=== PATIENT | female | born 1945 | race Caucasian/White ===

== ENCOUNTER → 2018-03-05 | Outpatient (CLI) | payer MEDICARE, OTHER | LOC: GMAB 10:30 | PROVIDERS: ATTEND Family Medicine | DX: I10 Essential (primary) hypertension (principal) ==

== ENCOUNTER → 2018-06-18 | Outpatient (CLI) | payer MEDICARE, OTHER ==
--- NOTE | 2018-06-19 13:15 | MAM ---
EXAM DESCRIPTION: 3D Diagnostic, Bilateral: Digital Mammography CLINICAL HISTORY: 73 yearsFemaleABN MAMMO . Minimal pain around the left nipple. No personal history of breast cancer. No family history breast cancer. Childbirth. Postmenopausal. Has taken HRT 5 or more years ago. COMPARISON: 2-D digital screening bilateral study 06/09/2015. No prior reports available. TECHNIQUE: Bilateral CC LM MLO projection full-field images, 3-D tomosynthesis digital mammographic technique. CAD not utilized. FINDINGS: The breast parenchymal density pattern is: Almost entirely fatty. No skin thickening or nipple retraction axillary lymph node right breast. Lymph nodes in the axillary tail of the left breast. Bilateral solitary coarse calcifications and microcalcifications. No new focal, stellate mass or density, focal asymmetry , and no suspicious microcalcifications bilaterally. Stable mammograms compared to prior study, taking into account differences in mammographic technique IMPRESSION: BI-RADS CATEGORY: 2 - BENIGN FINDINGS. FOLLOW UP: Return to routine digital bilateral screening, one year interval from May 2018. Written communication explaining the IMPRESSION and follow-up, will be mailed to the patient and referring health care provider. According to the [employer], yearly mammograms are recommended starting at age 40 and continuing as long as a woman is in good health. Any breast change noted on a breast self-exam should be reported promptly to the patient's healthcare provider. Breast MRI is recommended for women with an approximately 20-25% or greater lifetime risk of breast cancer, including women with a strong family history of breast or ovarian cancer and women who have been treated for Hodgkin's disease. A negative mammographic report should not delay tissue diagnosis in patients with significant clinical history or physical findings. Extremely dense breast tissue limits the sensitivity of digital mammography. Electronically signed by: Nelson Vicente MD 06/19/2018 1:13 PM CDT
== END ==
LOC: MAMMO 11:00
PROVIDERS: ATTEND Obstetrics & Gynecology
DX: N64.4 Mastodynia (principal); R92.1 Mammographic calcification found on diagnostic imaging of breast
CPT/HCPCS: 77066; G0279

== ENCOUNTER → 2019-05-02 | Outpatient (CLI) | payer MEDICARE, OTHER ==
--- NOTE | 2019-05-02 13:23 | RAD ---
EXAM DESCRIPTION: XR Humerus,Right, 2 views CLINICAL HISTORY: 74 years Female, ARM SWELLING COMPARISON: July 16, 2016. FINDINGS: Screw and plate fixation of an old mid humeral shaft fracture has been modified since the last exam, with increased callus or bony hypertrophy. There is a broken screw at the distal portion of the plate. No significant displacement of the major bony fragments. Previously noted angulation at the fracture site has been reduced, but there is still lack of bony union of the major fragments with suspected increase in focal demineralization or osteolysis. Infection should be excluded on clinical grounds. No acute fracture is identified. IMPRESSION: Revision of the surgical fixation of the old proximal humeral fracture. Lack of bony union at the fracture site, with increased focal demineralization or osteolysis. Infection should be excluded on clinical grounds. Please see other comments above. Electronically signed by: Dillon Zhu MD 05/02/2019 1:21 PM CDT
== END ==
LOC: LAB.O 12:32
PROVIDERS: ATTEND Nurse Practitioner Family
DX: L03.113 Cellulitis of right upper limb (principal); S42.301K Unspecified fracture of shaft of humerus, right arm, subsequent encounter for fracture with nonunion; Z98.890 Other specified postprocedural states

== ENCOUNTER → 2019-05-12 | Outpatient (CLI) | payer MEDICARE, OTHER ==
--- NOTE | 2019-05-14 07:33 | CT ---
CT right humerus without contrast INDICATION: Humeral fracture previous surgery TECHNIQUE: Helical CT images right humerus with multiplanar reformats This exam was performed according to our departmental dose-optimization program, which includes automated exposure control, adjustment of the mA and/or kV according to patient size and/or use of iterative reconstruction technique. FINDINGS: Minimal osteoarthrosis in the shoulder. 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 Mild angulation and displacement. There is a displaced screw in the soft tissues along the distal humerus. No fracture or dislocation of the elbow. There is an osteolytic region along the distal plate of the ORIF with bone expansion. This is probably related to hardware loosening and motion but is not entirely specific. IMPRESSION: Osseous nonunion mid right humeral fracture Evidence of hardware motion with osteolytic area along the distal plate Displaced fixation screw in the soft tissues distally Electronically signed by: Shashi Lopez MD 05/14/2019 7:31 AM CDT
== END ==
LOC: CT 12:43
PROVIDERS: ATTEND Orthopaedic Surgery
DX: T84.89XA Other specified complication of internal orthopedic prosthetic devices, implants and grafts, initial encounter (principal); S42.391K Other fracture of shaft of right humerus, subsequent encounter for fracture with nonunion

== ENCOUNTER → 2019-05-14 | Outpatient (CLI) | payer MEDICARE, OTHER ==
--- NOTE | 2019-05-15 17:16 | NM ---
EXAM DESCRIPTION: Bone Scan,Limited CLINICAL HISTORY: HUMERAL INFECTION COMPARISON: CT right humerus dated May 12, 2019 FINDINGS: The patient's white blood cells were labeled with 0.55 mCi indium-111. The labeled white blood cells were then administered intravenously. Imaging was acquired at 24-hour post injection. Images show physiologic labeled white blood cell in the spleen, liver, and bone marrow. There is no prominent focus of increased uptake of labeled white blood cell uptake in the expected location of the right humerus. IMPRESSION: No scintigraphic evidence for infection of the right humerus. Electronically signed by: Jake Lafleur MD 05/15/2019 5:14 PM CDT
== END ==
LOC: NM 08:04
PROVIDERS: ATTEND Orthopaedic Surgery
DX: S42.391K Other fracture of shaft of right humerus, subsequent encounter for fracture with nonunion (principal); T84.89XA Other specified complication of internal orthopedic prosthetic devices, implants and grafts, initial encounter
CPT/HCPCS: 78300; A9503

== ENCOUNTER → 2020-04-08 | Outpatient (CLI) | payer MEDICARE, OTHER ==
--- NOTE | 2020-04-11 07:49 | CT ---
Study: CT of the Right Shoulder. Indication: SHAFT FX RIGHT SHOULDER Technique: Axial CT of the right shoulder was performed without contrast. Coronal and sagittal reformats performed. This exam was performed according to our departmental dose-optimization program, which includes automated exposure control, adjustment of the mA and/or kV according to patient size and/or use of iterative reconstruction technique. Comparison: May 12, 2019. Findings: Interval revision of the previously noted right humeral shaft construct. The fracture remains ununited with sclerotic fracture margins indicating nonunion. The superior margin of the plate is uplifted by up to 9 mm. In addition, there is significant lucency about the 2 superiormost screws indicating marked loosening. There is likely loosening of the third and fourth screws immediately superior to the fracture as well. No acute fracture. Mild to moderate AC joint osteoarthritis. Moderate glenohumeral joint osteoarthritis. Mild atrophy and grade 1 fatty infiltration rotator cuff musculature. No acute fracture. 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 Uplifting of the proximal surgical plate from the humerus with loosening of the superior most screws. Additional findings as above. Electronically signed by: Adam Vail MD 04/11/2020 7:47 AM CDT
== END ==
LOC: CT 11:00
PROVIDERS: ATTEND Orthopaedic Surgery
DX: S42.391K Other fracture of shaft of right humerus, subsequent encounter for fracture with nonunion (principal); T84.190A Other mechanical complication of internal fixation device of right humerus, initial encounter; Z98.890 Other specified postprocedural states

== ENCOUNTER → 2020-04-12 | Outpatient (CLI) | payer MEDICARE, OTHER | LOC: GMAE 11:44 | PROVIDERS: ATTEND Family Medicine | DX: R45.84 Anhedonia (principal); R53.83 Other fatigue; E83.51 Hypocalcemia ==

== ENCOUNTER → 2020-04-27 | Outpatient (CLI) | payer MEDICARE, OTHER ==
--- NOTE | 2020-04-27 15:42 | MRI ---
Study: MRI of the Right Shoulder. Indication: FRACTURE OF SHAFT OF HUMERUS Technique: Multiplanar, multi sequence MRI of the right shoulder was obtained without intravenous contrast. Comparison: CT April 08, 2020. Findings: Mild AC joint osteoarthritis. Prior undersurface decompression of the acromion. Mild lateral downsloping acromion. Large volume subacromial/subdeltoid bursal fluid with scattered synovitis/debris. Partial visualization of the plate and screw construct of the humeral shaft. The proximal plate is uplifted as noted on the CT. The ununited fracture is not visualized in the field of view. There is marked marrow edema throughout the humeral neck and visualized proximal metadiaphysis. Supraspinatus, infraspinatus, and subscapularis tendinosis, low-grade attenuation, and tendon elongation noted without fluid-filled tear. Teres minor tendon intact. Mild atrophy and grade 1 fatty infiltration rotator cuff musculature. Long head biceps tendinosis. Circumferential labral truncation and degeneration. Mild/moderate glenohumeral joint osteoarthritis. Moderate size joint effusion with scattered synovitis/debris. Impression: Partial visualization of the humeral plate and screw construct which demonstrated loosening on the prior CT. There is marrow edema within the proximal humerus. Supraspinatus, infraspinatus, and subscapularis tendinosis and attenuation without tendon rupture. Circumferential labral truncation and degeneration. Mild to moderate glenohumeral joint osteoarthritis. Large volume subacromial/subdeltoid bursal fluid with synovitis/debris internally. Additional findings as above. Electronically signed by: Adam Vail MD 04/27/2020 3:41 PM CDT
== END ==
LOC: MRI 13:00
PROVIDERS: ATTEND Family Medicine Sports Medicine
DX: S42.391K Other fracture of shaft of right humerus, subsequent encounter for fracture with nonunion (principal); M75.91 Shoulder lesion, unspecified, right shoulder; M19.011 Primary osteoarthritis, right shoulder; M25.411 Effusion, right shoulder; R60.9 Edema, unspecified

== ENCOUNTER → 2020-06-27 | Outpatient (CLI) | payer MEDICARE, OTHER ==
--- NOTE | 2020-06-27 14:46 | RAD ---
EXAM DESCRIPTION: Shoulder,Right 2 or More Views CLINICAL HISTORY: PAIN IN RIGHT SHOULDER COMPARISON: None Available. TECHNIQUE: Two views of the right shoulder. FINDINGS: Two views right shoulder demonstrate previous fixation of the humeral shaft with sideplate and screws. Incomplete bony union is present. Lucency surrounding the screws suggests there may very well be movement at the fracture site with incomplete stabilization. Inferior displacement of the humeral head bordering on the subluxation suggest the possibility of large bursal or joint effusion pushing the humeral head inferiorly. Bones are osteopenic with normal alignment of the AC joint. IMPRESSION: 1. Markedly osteopenic and modestly degenerative shoulder with inferior subluxation of the humeral head suggesting large joint effusion or bursal effusion. 2. Previous fixation of the humeral shaft with sideplate and screws and apparent incomplete bony union and loosening of the proximal screws. Electronically signed by: Hernesto Caicedo MD 06/27/2020 2:44 PM CDT
--- NOTE | 2020-06-27 14:47 | RAD ---
EXAM DESCRIPTION: Elbow,Right 3 Views CLINICAL HISTORY: PAIN IN RIGHT ELBOW COMPARISON: None Available. TECHNIQUE: AP, Lateral, and Oblique FINDINGS: Three views right elbow demonstrate advanced degenerative changes and osteopenia. Previous plate and screw fixation of the distal humerus is noted. No fracture or dislocation. No joint effusion or foreign body noted. IMPRESSION: 1. Degenerative right elbow with previous fixation of the distal humeral shaft. Electronically signed by: Hernesto Caicedo MD 06/27/2020 2:46 PM CDT
--- NOTE | 2020-06-27 14:50 | RAD ---
Procedure: XR HUMERUS 2 views right Exam Date: 06/27/2020 Ordering Provider: David Castanon Clinical Indication: PAIN IN RIGHT ARM Comparison: 04/27/2020 Right shoulder MRI Findings/impression: Fixation plate and screws spanning the majority of the right humerus. The third most screw from the cephalad aspect is fractured. PeriScrew lucency involving the majority of the screws likely related to loosening. The cephalad aspect of the fixation plate is from the humerus by 8 mm. Nonunited fracture of the midshaft of the right humerus. No new fracture or dislocation. No soft tissue gas evident. Electronically signed by: Royal Kim MD 06/27/2020 2:48 PM CDT
== END ==
LOC: RAD 08:54
PROVIDERS: ATTEND Orthopaedic Surgery
DX: S42.301K Unspecified fracture of shaft of humerus, right arm, subsequent encounter for fracture with nonunion (principal); T84.498A Other mechanical complication of other internal orthopedic devices, implants and grafts, initial encounter; M19.021 Primary osteoarthritis, right elbow; M85.821 Other specified disorders of bone density and structure, right upper arm; Z98.890 Other specified postprocedural states

== ENCOUNTER → 2020-08-29 | Outpatient (CLI) | payer MEDICARE, OTHER | LOC: GMAE 11:14 | PROVIDERS: ATTEND Family Medicine | DX: D50.8 Other iron deficiency anemias (principal); I10 Essential (primary) hypertension ==

== ENCOUNTER → 2020-10-03 | Outpatient (CLI) | payer MEDICARE, OTHER | LOC: GMAE 15:02 | PROVIDERS: ATTEND Family Medicine | DX: D50.9 Iron deficiency anemia, unspecified (principal) ==

== ENCOUNTER → 2021-01-23 | Outpatient (CLI) | payer MEDICARE, OTHER | LOC: GMAE 14:24 | PROVIDERS: ATTEND Family Medicine | DX: E53.8 Deficiency of other specified B group vitamins (principal); D50.8 Other iron deficiency anemias; R53.83 Other fatigue ==